=== PATIENT | male | born 1985 | race Caucasian/White ===

== ENCOUNTER 2020-12-04 05:58 | Day surgery (SDC) | payer OTHER, SELFPAY ==
[~2020-12-04] VITALS: Ht 180.3 cm; Wt 129.3 kg
[2020-12-04] MEDS ORDERED: fentaNYL citrate 0.05 MG/ML VIAL ONE (07:15)
[2020-12-04] MEDS ORDERED: MIDAZOLAM 2 MG/2 ML VIAL ONE (07:16)
[2020-12-04] MEDS ORDERED: PROPOFOL 200 MG/20 ML VIAL IV ONE (07:17)
[2020-12-04] MEDS ORDERED: SUCCINYLCHOLINE CHLORIDE 200 MG/10 ML VIAL IVP ONE (07:18)
[2020-12-04] MEDS ORDERED: LIDOCAINE 1% 500 MG/50 ML VIAL ONE (07:30)
[2020-12-04] MEDS ORDERED: BUPIVACAINE-MPF 0.25% 30 ML VIAL INJ ONE (07:30)
[2020-12-04] MEDS ORDERED: SEVOFLURANE 250 ML BTL INH ONE (07:45)
[2020-12-04] MEDS ORDERED: ONDANSETRON 4 MG/2 ML VIAL ONE (08:13)
[2020-12-04] MEDS ORDERED: DEXAMETHASONE 4 MG/ML VIAL ONE (08:13)
[2020-12-04] MEDS ORDERED: MEPERIDINE 50 MG/ML SYR ONE (08:14)
[2020-12-04] MEDS ORDERED: NACL 0.9% 1,000 ML IV SCH (08:30)
[2020-12-04] MEDS ORDERED: HYDROmorphone 1 MG/ML AMP IVP PRN (08:30)
[2020-12-04] MEDS ORDERED: ONDANSETRON 4 MG/2 ML VIAL IVP PRN (08:30)
[2020-12-04] MEDS ORDERED: MEPERIDINE 25 MG/ML SYR IVP PRN (08:30)
[2020-12-04] MEDS ORDERED: diphenhydrAMINE 50 MG/ML VIAL IVP PRN (08:30)
[2020-12-04] MEDS ORDERED: LABETALOL 100 MG/20 ML VIAL ONE (08:31)
[2020-12-04] MEDS: HYDROcodone/APAP 5/325 MG 1 TAB TAB ONE (09:55)
[2020-12-04] MEDS: HYDROcodone/APAP 10/325 MG 1 TAB TAB PO ONE (09:55)
[2020-12-04] MEDS ORDERED: HYDROcodone/APAP 5/325 MG 1 TAB TAB PO SCH (10:15)
== END 2020-12-04 10:15 | disposition home or self-care (01) ==
LOC: MDS 05:58 → MMU 05:59 → MDS 10:15
PROVIDERS: ATTEND Surgery
DX: K64.8 Other hemorrhoids (principal); K64.4 Residual hemorrhoidal skin tags; I10 Essential (primary) hypertension; E66.9 Obesity, unspecified; F12.10 Cannabis abuse, uncomplicated; K57.90 Diverticulosis of intestine, part unspecified, without perforation or abscess without bleeding; Z79.899 Other long term (current) drug therapy
CPT/HCPCS: 46260; 71045; 87426; J0330; J1100; J2001; J2175; J2250; J2405; J2704; J3010; J3490; J7030